=== PATIENT | female | born 1995 | race Caucasian/White ===

== ENCOUNTER 2019-03-02 13:05 | Emergency (ER) | payer SELFPAY ==
[2019-03-02 14:23] LABS: EOS # 0.1 (0.04-0.40); EOS % 1.6 % (1.0-5.0); HEMATOCRIT 43.2 % (37.0-47.0); HEMOGLOBIN 14.1 g/dL (12.5-16.0); LYMPH# 0.8 (1.50-4.00); MEAN CELL VOLUME 90 fl (78-100); MEAN CORPUSCULAR HEMOGLOBIN 29 pg (27-31); MEAN CORPUSCULAR HGB CONC 33 g/dL (33-37); MEAN PLATELET VOLUME 10.4 fl (7.4-10.4); MONO # 0.5 (0.20-0.80); NEU # 4.9 (1.40-6.50); PLATELET COUNT 221 K/mm3 (130-400); RED BLOOD COUNT 4.79 M/mm3 (4.10-5.30); WHITE BLOOD COUNT 6.4 K/mm3 (4.8-10.8)
[2019-03-02 14:33] LABS: POTASSIUM 3.7 mmol/L (3.5-5.1)
[2019-03-02 14:34] LABS: CALCIUM 9.1 mg/dL (8.3-10.5)
[2019-03-02 14:36] LABS: URINE APPEARANCE CLOUDY; URINE BILIRUBIN NEGATIVE (NEGATIVE); URINE BLOOD NEGATIVE (NEGATIVE); URINE COLOR YELLOW; URINE GLUCOSE NEGATIVE (NEGATIVE); URINE KETONE NEGATIVE (NEGATIVE); URINE LEUKOCYTE ESTERASE 2+ (NEGATIVE); URINE MUCUS PRESENT (NOT PRESENT); URINE NITRATE NEGATIVE (NEGATIVE); URINE PROTEIN(semi-quant) TRACE mg/dL (NEGATIVE); URINE UROBILINOGEN NORMAL (NORMAL)
[2019-03-02] MEDS ORDERED: ZOFRAN ODT4 MG PO (15:37)
[2019-03-02 15:56] VITALS: BP 99/55
== END 2019-03-02 15:50 | disposition home or self-care (01) ==
LOC: ED 13:05
PROVIDERS: Family Medicine
DX: O98.511 Other viral diseases complicating pregnancy, first trimester (principal); O26.811 Pregnancy related exhaustion and fatigue, first trimester; O99.331 Smoking (tobacco) complicating pregnancy, first trimester; Z3A.00 Weeks of gestation of pregnancy not specified

== ENCOUNTER 2020-02-06 11:39 | Emergency (ER) | payer MEDICAID ==
[~2020-02-06] VITALS: Ht 167.6 cm; Wt 57.4 kg
[~2020-02-06 11:39] MED LIST: CETIRIZINE HCL10 MG PO; CITALOPRAM40 MG PO; PRENATAL GUMMI1 EACH PO; ZOFRAN ODT4 MG PO
[2020-02-06] MEDS ORDERED: SERTRALINE50 MG PO (12:04)
[2020-02-06] MEDS ORDERED: KLONOPIN 0.5MG0.5 MG PO (12:04)
[2020-02-06 12:31] LABS: URINE APPEARANCE HAZY; URINE COLOR YELLOW; URINE PROTEIN(semi-quant) 1+ mg/dL (NEGATIVE)
[2020-02-06 12:32] LABS: URINE BILIRUBIN NEGATIVE (NEGATIVE); URINE BLOOD TRACE (NEGATIVE); URINE GLUCOSE NEGATIVE (NEGATIVE); URINE KETONE NEGATIVE (NEGATIVE); URINE LEUKOCYTE ESTERASE 2+ (NEGATIVE); URINE NITRATE POSITIVE (NEGATIVE); URINE UROBILINOGEN NORMAL (NORMAL)
[2020-02-06 12:33] LABS: URINE MUCUS PRESENT (NOT PRESENT)
[2020-02-06] MEDS ORDERED: CEFPODOXIME PR200 M1 PO (13:25)
[2020-02-06 13:36] VITALS: BP 108/62
== END 2020-02-06 13:38 | disposition home or self-care (01) ==
LOC: ED 11:39
PROVIDERS: Internal Medicine
DX: N12 Tubulo-interstitial nephritis, not specified as acute or chronic (principal); F15.10 Other stimulant abuse, uncomplicated; R51.9 Headache, unspecified; F32.9 Major depressive disorder, single episode, unspecified; F41.0 Panic disorder [episodic paroxysmal anxiety]; F17.210 Nicotine dependence, cigarettes, uncomplicated; Z32.02 Encounter for pregnancy test, result negative
CPT/HCPCS: J1885